=== PATIENT | male | born 1945 ===

== ENCOUNTER 2021-12-27 08:00 | Outpatient (RCR) | payer SELFPAY ==
[2021-12-06 08:23] VITALS: BP 124/55; PULSE 52
[2021-12-08 08:13] VITALS: BP 113/61; PULSE 56
[2021-12-15 08:00] VITALS: BP 118/64; PULSE 63
[2021-12-20 08:20] VITALS: BP 108/60; PULSE 67
[2021-12-22 08:13] VITALS: BP 101/52; PULSE 54
[2021-12-27 08:03] VITALS: BP 114/61; PULSE 63; O2SAT 98
== END 2022-01-05 23:59 | disposition home or self-care (01) ==
LOC: CR 08:00
PROVIDERS: Visit Provider Family Medicine
DX: R69 Illness, unspecified (principal)